=== PATIENT | male | born 1985 | race American Indian/Alaskan Native ===

== ENCOUNTER 2019-09-26 09:06 | Outpatient (CLI) | payer OTHER ==
--- NOTE | 2019-09-26 10:10 | XRay Report ---
CERVICAL SPINE 4 VIEWS INDICATION: PAIN IN NECK. COMPARISON: No relevant prior imaging study available. FINDINGS: Alignment is normal. No significant degenerative changes. No fracture or subluxation. No prevertebral soft tissue swelling. There is mild ossification along the anterior longitudinal ligament/anterior a nnular ligaments at C4-5 and C5-6. IMPRESSION: 1. No acute findings. BILATERAL SHOULDERS 6 VIEWS INDICATION: Bilateral shoulder pain. COMPARISON: No relevant prior imaging study available. FINDINGS: Right shoulder: There is mild remodeling proximal right humerus in the region of the surgical neck, t his may be related to prior trauma. No acute fracture or dislocation. No intrinsic lesions. No signif icant degenerative changes. Left shoulder: No acute fracture or dislocation. No significant degenerative changes. No focal soft t issue swelling or foreign bodies. IMPRESSION: 1. No acute findings. LUMBAR SPINE 3 VIEWS INDICATION: Low back pain. COMPARISON: No relevant prior imaging study available. FINDINGS: Lumbar vertebral body height is maintained. Alignment is normal. There is no significant disc space n arrowing in the lumbar spine. SI joints are within normal limits. IMPRESSION: 1. No acute findings. Signer Name: Rhett Hernández MD Signed: 09/26/2019 10:05 AM Workstation Name: [id number]
== END 2019-09-26 09:07 | disposition home or self-care (01) ==
LOC: XRAY 09:06
PROVIDERS: ATTEND Internal Medicine
DX: S43.409A Unspecified sprain of unspecified shoulder joint, initial encounter (principal); M54.2 Cervicalgia; M54.5 Low back pain; M10.9 Gout, unspecified; X58.XXXA Exposure to other specified factors, initial encounter; Y93.89 Activity, other specified; Y92.89 Other specified places as the place of occurrence of the external cause; Y99.8 Other external cause status
CPT/HCPCS: 72040; 72100